=== PATIENT | female | born 1995 | race Caucasian/White ===

== ENCOUNTER 2019-09-22 18:08 | Emergency (ER) | payer MEDICAID ==
[~2019-09-22] VITALS: Ht 160 cm; Wt 46.9 kg
[2019-09-22 18:16] VITALS: Ht 160 cm; Wt 46.9 kg
[2019-09-22 18:45] VITALS: BP 101/72
== END 2019-09-22 18:45 | disposition home or self-care (01) ==
LOC: ED 18:08
DX: H92.01 Otalgia, right ear (principal); Z85.841 Personal history of malignant neoplasm of brain

== ENCOUNTER 2019-10-04 21:11 | Emergency (ER) | payer MEDICAID ==
[~2019-10-04] VITALS: Ht 160 cm; Wt 47.2 kg
[2019-10-04 21:28] VITALS: BP 113/73; Ht 160 cm; Wt 47.2 kg
== END 2019-10-04 22:24 | disposition home or self-care (01) ==
LOC: ED 21:11
DX: H61.21 Impacted cerumen, right ear (principal); Z85.841 Personal history of malignant neoplasm of brain